=== PATIENT | female | born 1925 | race Caucasian/White ===

== ENCOUNTER → 2016-09-23 | Outpatient (CLI) | payer MEDICARE, OTHER ==
[~2016-09-23] MED LIST: AUGMENTIN875 M1 PO; AVAPRO PO; CEPHALEXIN500 M1 PO; COLACE PO; COZAAR100 MG PO; COZAAR25 MG; CYANOCOBALAM1000 MCG PO; FLEXERIL10 MG PO; HI-CAL500 M1 PO; LORTAB 5/500 TA1 TA1 PO; MEDROL DOSE PAK; MIRALAX17 GM PO; NORVASC PO; ORUDIS75 M1 PO; SENNA PO; TOPROL XL PO; TYLENOL PO
--- NOTE | ~2016-09-23 | US85 ---
[facility] A Service of [facility] RADIOLOGY TEXT RESULTS PATIENT: MICHAELA OSORIO LOCATION: CNIV : [birth year] UNIT #: [id number] AGE: [address]: Ari Galo MD SEX: F ORDER DR: [id number] [facility] [address]. [place], [place] [address] [id number] MR#: [id number] #: [id number] NAME: MICHAELA OSORIO : 1925 SEX: F STUDY DATE/TIME: 09/23/2016 16:35 UNIT: CNIV ROOM: STUDY DESCRIPTION: [facility] St[facility] Attending Physician: Ari Galo M.D. Ordering Physician: Ari Galo M.D. Primary Care Physician: Ari Galo M.D. MEDICAL IMAGING REPORT This report is preliminary unless electronic signature is present EXAM Left lower extremity Doppler venous ultrasound 09/23/2016 HISTORY Left lower extremity swelling for a week. Erythema for 3-4 days. COMPARISON None. TECHNIQUE Venous ultrasound examination of the left lower extremity was performed using grayscale, spectral Doppler and color flow Doppler imaging. FINDINGS The examination is negative. There is no evidence of left lower extremity deep venous thrombus from the groin to the lower calf. Visualized greater saphenous vein is also patent. IMPRESSION Negative examination. No evidence of left lower extremity deep venous thrombosis. Dictated by... Rayne Benitez M.D. THIS IS AN ELECTRONICALLY VERIFIED REPORT Rayne Benitez M.D. at 09/24/2016 2:08 PM [facility]/manuel TD: 09/24/2016 08:08 JOB #: [id number] [facility] A Service [facility] RADIOLOGY TEXT RESULTS PATIENT: MICHAELA OSORIO LOCATION: CNIV : [birth year] UNIT #: [id number] AGE: [address]: Ari Galo MD SEX: F ORDER DR: MEDICAL IMAGING REPORT COPY
== END | disposition home or self-care (01) ==
LOC: CNIV 16:07
DX: M79.89 Other specified soft tissue disorders (principal)
CPT/HCPCS: 93971

== ENCOUNTER 2016-10-04 14:55 | Inpatient (IN) | payer MEDICARE, OTHER ==
--- NOTE | ~2016-10-04 | CT87 ---
[facility] A Service of [facility] RADIOLOGY TEXT RESULTS PATIENT: MICHAELA OSORIO LOCATION: A : [birth year] UNIT #: [id number] AGE: [address]: Jackeline Odonnell MD SEX: F ORDER DR: [id number] [facility] [address] [place], [place] [address] [id number] I MR#: [id number] Acc #: [id number] NAME: MICHAELA OSORIO : 1925 SEX: F STUDY DATE/TIME: 10/06/2016 15:45 UNIT: C2A ROOM: [facility] STUDY DESCRIPTION: CT Lower Ext Anthony W Cont Attending Physician: Jackeline Odonnell M.D. Ordering Physician: Abdoulaye Lovell M.D. Primary Care Physician: Ari Galo M.D. MEDICAL IMAGING REPORT This report is preliminary unless electronic signature is present EXAM CT scan of the lower extremities with contrast. HISTORY Bilateral lower extremity cellulitis with concern for abscess. History of cellulitis over the past 3 weeks, particularly on the left. TECHNIQUE Axial images were obtained through the lower extremities with contrast. 100 mL of Isovue was used. This CT exam was performed with one or more of the following radiation dose reduction techniques: automatic exposure control, adjustment of mA and/or kV according to patient size, and iterative reconstruction. FINDINGS Edematous changes are seen subcutaneously on the left and right sides, but worse on the left. There is no evidence of focal soft tissue abscess. No destructive bone lesions are seen. No venous filling defects are seen to suggest thrombus. Atherosclerotic calcification is noted in the popliteal artery, especially on the left. IMPRESSION Soft tissue swelling with no evidence of abscess. No evidence of active cortical bone destruction. Dictated by... Messi Quinn M.D. THIS IS AN ELECTRONICALLY VERIFIED REPORT Messi Quinn M.D. at 10/08/2016 11:01 AM RLF/gz [facility] A Service of [facility] RADIOLOGY TEXT RESULTS PATIENT: MICHAELA OSORIO LOCATION: [facility] 203-01 : [birth year] UNIT #: [id number] AGE: [address]: Jackeline Odonnell MD SEX: F ORDER DR: TD: 10/07/2016 10:53 JOB #: [id number] MEDICAL IMAGING REPORT Page 1 of 1 COPY
--- NOTE | ~2016-10-04 | US84 ---
[id number] [facility] [address]. [place], [place] [address] [id number] I MR#: [id number] Acc #: [id number] NAME: MICHAELA OSORIO : 1925 SEX: F STUDY DATE/TIME: 10/04/2016 16:42 UNIT: C2A ROOM: 203 STUDY DESCRIPTION: US LE Veins Complete Anthony Stdy Attending Physician: Anneliese Ozuna M.D. Ordering Physician: Anneliese Ozuna M.D. Primary Care Physician: Ari Galo M.D. MEDICAL IMAGING REPORT This report is preliminary unless electronic signature is present EXAM Bilateral lower extremity venous duplex ultrasound 10/04/2016 HISTORY 89-year-old female with bilateral lower extremity pain and swelling for 2 weeks. COMPARISON Left lower extremity venous ultrasound 09/23/2016 FINDINGS Real time hooks-scale, color Doppler, and spectral Doppler analysis of the bilateral lower extremity deep venous systems demonstrates normal venous waveforms with normal compressibility and augmentation throughout. No evidence of bilateral lower extremity deep venous thrombosis. IMPRESSION Negative for bilateral lower extremity DVT. Dictated by... Blair Hopper M.D. THIS IS AN ELECTRONICALLY VERIFIED REPORT Blair Hopper M.D. at 10/05/2016 6:04 AM KAILA/nubia TD: 10/05/2016 05:39 JOB #: [id number] MEDICAL IMAGING REPORT COPY
--- NOTE | ~2016-10-04 | DS ---
Unit #: [id number] #: [id number] Patient: MICHAELA OSORIO [id number] [address] [place], [place] [address] [id number] I MR#: [id number] NAME: MICHAELA OSORIO ROOM: 203 Age: 89 Sex: F Admission Date: 10/04/2016 : 1925 Discharge Date: 10/07/2016 Attending Physician: Jackeline Odonnell M.D. Primary Care Physician: Ari Galo M.D. DISCHARGE SUMMARY ADMITTING DIAGNOSES Cellulitis, hypertension, chronic obstructive pulmonary disease. HISTORY OF PRESENTING ILLNESS The patient is an 89-year-old lady with a past medical history of coronary artery disease, COPD, hypertension, aortic aneurysm, chronic back pain, presented from primary care physician's office with a chief complaint of cellulitis. Apparently, she was treated with clindamycin and she did not respond in the office. HOSPITAL COURSE She was started on antimicrobials including vancomycin and Zosyn. Blood cultures were obtained. Blood cultures were all negative. The cellulitis was taking little bit longer to improve and for further evaluation, we did a CT with contrast which did not show any evidence of any abscess. She is doing clinically better. She feels the cellulitis has improved well. We will discharge her on oral Augmentin. I explained her in detail about the possible side effects of Augmentin including diarrhea and explained her if she is not feeling well, she needs to talk to her primary care. She is doing clinically better and for the blood pressure, she was on 2 of her home medications and it is not getting under control and we added Norvasc. I am requesting her to follow up with her primary care in 1 to 2 weeks. PHYSICAL EXAMINATION On the day of the discharge: VITAL SIGNS: Temperature 98.5, pulse rate 55, respiratory rate 18, blood pressure 167/56. GENERAL: The patient is alert and oriented x3, lying in the bed. No acute distress. HEENT: Normocephalic, atraumatic. No icterus. LISA. Extraocular muscles are intact. NECK: Supple. No JVD. HEART: S1, S2. Regular rate and rhythm. CHEST: Bilateral equal entry. Clear to auscultation. ABDOMEN: Soft, nontender. EXTREMITIES: Mild cellulitis in both the lower extremities. DISCHARGE MEDICATIONS Include Toprol-XL 100 mg daily, losartan 100 mg daily, Norvasc 5 mg daily, Augmentin 875 mg one tab p.o. b.i.d. for 10 days. DISCHARGE INSTRUCTIONS All the discharge instructions were explained in detail to the patient. Unit #: [id number] #: [id number] Patient: MICHAELA OSORIO Total time spent in her care 35 minutes. Dictated by... Gina Teague/lynda TD: 10/08/2016 06:08 JOB #: [id number] DISCHARGE SUMMARY Page 1 of 1 X X DISCHARGE SUMMARY
--- NOTE | ~2016-10-04 | HP ---
Unit #: [id number] #: [id number] Patient: MICHAELA OSORIO [id number] [address] [address] [id number] I MR#: [id number] NAME: MICHAELA OSORIO ROOM: 203 Age: 89 Sex: F Admission Date: 10/04/2016 : 1925 Attending Physician: Anneliese Ozuna M.D. Primary Care Physician: Ari Galo M.D. HISTORY AND PHYSICAL ADDENDUM VITAL SIGNS: Temperature 98, pulse 77, respirations 18, blood pressure 121/65, oxygen saturation 97%. Dictated by Gina Haynes/sera TD: 10/04/2016 20:13 JOB #: [id number] HISTORY AND PHYSICAL X Anneliese Ozuna MD HISTORY AND PHYSICAL
--- NOTE | ~2016-10-04 | EKG ---
PATIENT: MICHAELA OSORIO UNIT #: [id number] Ventricular Rate: 58 BPM Atrial Rate: 58 BPM P-R Interval: 152 ms QRS Duration: 80 ms Q-T Interval: 460 ms QTC Calculation(Bezet): 451 ms P Sophia: 65 degrees Calculated R Sophia: 22 degrees Calculated T Sophia: 39 degrees Diagnosis Line: Sinus bradycardia Diagnosis Line: Otherwise normal ECG Diagnosis Line: When compared with ECG of 23-OCT-2009 08:20, Diagnosis Line: No significant change was found Diagnosis Line: Confirmed by NELSON DAY MD ([id number]) on 10/07/2016 Diagnosis Line: 7:24:17 AM INTERPRETING MD: SHAY VENCES
--- NOTE | ~2016-10-04 | HP ---
Unit #: [id number] #: [id number] Patient: MICHAELA OSORIO [id number] [facility] [address]. [place], [place] [address] [id number] I MR#: [id number] NAME: MICHAELA OSORIO ROOM: 203 Age: 89 Sex: F Admission Date: 10/04/2016 : 1925 Attending Physician: Anneliese Ozuna M.D. Primary Care Physician: Ari Galo M.D. HISTORY AND PHYSICAL CHIEF COMPLAINT Cellulitis. HISTORY OF PRESENT ILLNESS The patient is an 89-year-old female with past medical history of coronary artery disease, COPD, hypertension, aortic aneurysm, chronic back pain, diverticular disease, who was a direct admit from Dr. Galo' office for evaluation of the above. The patient has had a three-week history of cellulitis involving the left leg. The patient states that she has had increasing redness, warmth and swelling. She initially received Keflex which she completed as prescribed. She was then changed to clindamycin. She states that the left leg has gotten slightly better, however, four days prior to admission the right leg started being red and swollen as well. Today, she saw Dr. Galo and was sent to [facility] for admission. The patient denies any fever. She denies ever having a similar problem. No chest pain, no trouble breathing, no vomiting or diarrhea. She has had some urinary frequency. The patient did have a left lower extremity venous Doppler on 09/23/2016 that was negative for DVT. PAST MEDICAL HISTORY 1. Admission to [facility] 11/01 through 11/03/2014 for left upper extremity cellulitis. 2. Coronary artery disease, status post cardiac stent placement. 3. Hypertension. 4. Osteoporosis with history of compression fracture. 5. Abdominal aortic aneurysm. 6. Osteoarthritis. 7. Chronic back pain. 8. Diverticular disease with history of diverticulitis and possible abscess status post perforation. PAST SURGICAL HISTORY 1. Placement of "drain" following a colon rupture. 2. Kyphoplasty. 3. Partial hysterectomy. 4. 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 5. Cardiac catheterization with stent placement. 6. Appendectomy. ALLERGIES 1. Plavix. 2. Valium. Unit #: [id number] #: [id number] Patient: MICHAELA OOSRIO 3. Oxaprozin. 4. Actonel. 5. Sulfa. 6. Ativan. HOME MEDICATIONS Per the discharge summary of October of 2014 include: 1. Toprol XL. 2. Cozaar. 3. Vitamin B12. Home medications will need to be reviewed and verified. SOCIAL HISTORY The patient lives with her . She is a former smoker. She denies alcohol use. FAMILY HISTORY Notable for heart disease and malignancy. The patient states that she has three children that had cancer. REVIEW OF SYSTEMS A complete review of systems is negative except as indicated in the HPI. Per the discharge summary, the patient did qualify for home oxygen. She states that she used it for about a week but has not used it since then. PHYSICAL EXAMINATION VITAL SIGNS: Pending. GENERAL: The patient is a very pleasant female who is awake and alert in no acute distress. HEENT: Head is atraumatic. Mucous membranes are moist. NECK: Supple. Trachea is midline. LUNGS: Clear to auscultation bilaterally with no increased work of breathing. HEART: Regular rate and rhythm. ABDOMEN: Soft, nontender. Bowel sounds present in all four quadrants. EXTREMITIES: Lower extremities show 2+ pitting edema with associated erythema, warmth and tenderness to palpation. Dorsalis pedis pulses are dopplerable. Sensation is intact. NEUROLOGIC: Patient is awake and alert. She is oriented x3. She follows commands. PSYCHIATRIC: Mood and affect are normal. Patient is cooperative. SKIN OF EXAMINED AREAS: Demonstrates the previously described abnormalities. DIAGNOSTIC STUDIES LABORATORY: Pending. IMAGING: Left lower extremity venous Doppler from 09/23/2016 was negative. ASSESSMENT The patient is an 89-year-old female with: 1. Bilateral lower extremity cellulitis that has failed outpatient treatment with Keflex and clindamycin. 2. History of coronary artery disease, status post stent placement. 3. Chronic obstructive pulmonary disease. 4. Hypertension. 5. Aortic aneurysm. Unit #: [id number] #: [id number] Patient: MICHAELA OSORIO 6. Chronic back pain. 7. Diverticular disease. 8. Former smoker. PLAN 1. Admit to med-surg. 2. Healthy-heart diet. 3. Check labs including lactic acid and CPK. 4. Blood cultures x2. 5. Vancomycin IV and Zosyn IV pending further workup. 6. P.r.n. Tylenol. 7. P.r.n. Zofran. 8. Check urinalysis. 9. Check bilateral lower extremity venous Dopplers. 10. Repeat labs in the morning. 11. Additional workup and consultants based on above. Dictated by Gina Haynes/emelina TD: 10/04/2016 17:22 JOB #: [id number] HISTORY AND PHYSICAL X Anneliese Ozuna MD HISTORY AND PHYSICAL
[~2016-10-04 14:55] MED LIST changes: -AUGMENTIN875 M1 PO; -NORVASC PO
[2016-10-04 16:10] LABS: HEMATOCRIT 34.8 % (35.0-45.0); HEMOGLOBIN 11.5 gm/dL (12.0-16.0); MEAN CELL VOLUME 96.2 FL (83-96); MEAN CORPUSCULAR HEMOGLOBIN 31.7 PG (28-34); MEAN CORPUSCULAR HGB CONC 32.9 g/dL (30-36); MEAN PLATELET VOLUME 9.1 FL (6.5-11.5); RED BLOOD COUNT 3.62 X10e (3.90-5.30); RED CELL DISTRIBUTION WIDTH 16.3 % (11.0-15.5); WHITE BLOOD COUNT 8.5 X10e3 (4.0-10.5)
[2016-10-04 16:27] LABS: PROTHROMBIN TIME (PATIENT) 10.3 SECONDS (9.6-11.5)
[2016-10-04 16:38] LABS: BILIRUBIN,TOTAL 1.2 mg/dL (0.2-2.0); CALCIUM SERUM 8.7 mg/dL (8.4-10.2); GLOM FILT RATE Estimated 55.6 mL/min (>60); POTASSIUM 4.6 mmol/L (3.5-5.1); PROTEIN TOTAL SERUM 7.1 g/dL (6.0-8.3)
[2016-10-04 17:51] LABS: URINE APPEARANCE CLEAR; URINE BILIRUBIN NEG (NEG); URINE BLOOD NEG (NEG); URINE COLOR YELLOW; URINE GLUCOSE NEG (NEG); URINE KETONE NEG (NEG); URINE LEUKOCYTE ESTERASE TRACE (NEG); URINE NITRATE NEG (NEG); URINE PROTEIN NEG (NEG); URINE SPECIFIC GRAVITY 1.007 (1.003-1.035); URINE UROBILINOGEN 0.2 MG/DL (NEG)
[2016-10-04 17:53] LABS: URBCS1 AUWI 0-2 /[HPF] (0-2); URINE BACTERIA AUWI NEG (NEGATIVE); URINE SQUAMOUS EPITHELIAL CELL NONE SEEN /[HPF]; UWBCS1 AUWI 0-2 (0-5)
[2016-10-05 06:13] LABS: HEMATOCRIT 32.3 % (35.0-45.0); HEMOGLOBIN 10.7 gm/dL (12.0-16.0); MEAN CORPUSCULAR HEMOGLOBIN 31.9 PG (28-34); MEAN CORPUSCULAR HGB CONC 33.2 g/dL (30-36); MEAN PLATELET VOLUME 8.6 FL (6.5-11.5); RED BLOOD COUNT 3.36 X10e (3.90-5.30); RED CELL DISTRIBUTION WIDTH 16.3 % (11.0-15.5); WHITE BLOOD COUNT 8.1 X10e3 (4.0-10.5)
[2016-10-05 06:14] LABS: PROTHROMBIN TIME (PATIENT) 10.8 SECONDS (9.6-11.5)
[2016-10-05 06:51] LABS: ALBUMIN SERUM 3.5 g/dL (3.5-5.0); BILIRUBIN,TOTAL 1.5 mg/dL (0.2-2.0); BUN/CREATININE RATIO 11.81; CALCIUM SERUM 8.8 mg/dL (8.4-10.2); CREATININE SERUM 1.1 mg/dL (0.6-1.4); GLOM FILT RATE Estimated 49.8 mL/min (>60); POTASSIUM 4.1 mmol/L (3.5-5.1); PROTEIN TOTAL SERUM 6.2 g/dL (6.0-8.3)
[2016-10-06 07:44] LABS: HEMATOCRIT 30.3 % (35.0-45.0); HEMOGLOBIN 10.3 gm/dL (12.0-16.0); MEAN CELL VOLUME 94.4 FL (83-96); MEAN CORPUSCULAR HGB CONC 33.9 g/dL (30-36); MEAN PLATELET VOLUME 8.2 FL (6.5-11.5); RED BLOOD COUNT 3.21 X10e (3.90-5.30); RED CELL DISTRIBUTION WIDTH 16.3 % (11.0-15.5)
[2016-10-06 08:19] LABS: BUN/CREATININE RATIO 9.09; CALCIUM SERUM 8.4 mg/dL (8.4-10.2); CREATININE SERUM 1.1 mg/dL (0.6-1.4); GLOM FILT RATE Estimated 49.8 mL/min (>60); POTASSIUM 3.9 mmol/L (3.5-5.1)
[2016-10-07 06:08] LABS: HEMATOCRIT 30.2 % (35.0-45.0); HEMOGLOBIN 10.2 gm/dL (12.0-16.0); MEAN CELL VOLUME 94.5 FL (83-96); MEAN CORPUSCULAR HGB CONC 33.9 g/dL (30-36); MEAN PLATELET VOLUME 8.3 FL (6.5-11.5); RED BLOOD COUNT 3.2 X10e (3.90-5.30); RED CELL DISTRIBUTION WIDTH 16.5 % (11.0-15.5); WHITE BLOOD COUNT 7.5 X10e3 (4.0-10.5)
[2016-10-07 06:57] LABS: BLOOD UREA NITROGEN 8 mg/dL (9-23); BUN/CREATININE RATIO 8.88; CALCIUM SERUM 8.3 mg/dL (8.4-10.2); CARBON DIOXIDE 22 mmol/L (22-31); CHLORIDE 103 mmol/L (100-111); CREATININE SERUM 0.9 mg/dL (0.6-1.4); GLOM FILT RATE Estimated ABOVE60 mL/min (>60); GLUCOSE FASTING 87 mg/dL (70-110); POTASSIUM 3.8 mmol/L (3.5-5.1); SODIUM 135 mmol/L (135-145)
[2016-10-07] MEDS ORDERED: NORVASC PO (10:42)
[2016-10-07] MEDS ORDERED: AUGMENTIN875 M1 PO (10:43)
== END 2016-10-07 11:50 | disposition home or self-care (01) | DRG 603 ==
LOC: C2A 14:55
PROVIDERS: Family Medicine; Internal Medicine
DX: L03.116 Cellulitis of left lower limb (principal); J44.9 Chronic obstructive pulmonary disease, unspecified; L03.115 Cellulitis of right lower limb; Z88.2 Allergy status to sulfonamides; Z88.8 Allergy status to other drugs, medicaments and biological substances; I10 Essential (primary) hypertension; I25.10 Atherosclerotic heart disease of native coronary artery without angina pectoris; M54.9 Dorsalgia, unspecified; I71.4 Abdominal aortic aneurysm, without rupture; Z87.891 Personal history of nicotine dependence; L02.416 Cutaneous abscess of left lower limb; Z90.711 Acquired absence of uterus with remaining cervical stump; Z90.49 Acquired absence of other specified parts of digestive tract; Z95.5 Presence of coronary angioplasty implant and graft; Z89.202 Acquired absence of left upper limb, unspecified level
CPT/HCPCS: 73701; 80048; 80053; 80202; 81003; 82550; 83605; 85027; 85610; 87040; 87086; 93005; 93970; 94640; 94760; J2543; J3370; Q9967

== ENCOUNTER 2017-01-29 23:39 | Emergency (ER) | payer MEDICARE, OTHER ==
--- NOTE | ~2017-01-29 | EKG ---
PATIENT: MICHAELA OSORIO UNIT #: [id number] Ventricular Rate: 61 BPM Atrial Rate: 61 BPM P-R Interval: 150 ms QRS Duration: 80 ms Q-T Interval: 436 ms QTC Calculation(Bezet): 438 ms P Mcgregor: 77 degrees Calculated R Mcgregor: 12 degrees Calculated T Mcgregor: 44 degrees Diagnosis Line: Sinus rhythm with occasional Premature ventricular Diagnosis Line: complexes and Premature atrial complexes Diagnosis Line: Septal infarct , age undetermined Diagnosis Line: Abnormal ECG Diagnosis Line: When compared with ECG of 04-OCT-2016 18:14, Diagnosis Line: Premature ventricular complexes are now Present Diagnosis Line: Premature atrial complexes are now Present Diagnosis Line: Septal infarct is now Present Diagnosis Line: Confirmed by CHRISS CUADRA MD ([id number]) on Diagnosis Line: 01/30/2017 10:42:17 AM INTERPRETING MD: KHALIF VENCES
--- NOTE | ~2017-01-29 | CR72 ---
[facility] A Service [facility] RADIOLOGY TEXT RESULTS PATIENT: MICHAELA OSORIO LOCATION: [facility] : [birth year] UNIT #: [id number] AGE: [address]: Sachin Carvalho MD SEX: F ORDER DR: [id number] [place] [id number] [facility]. [place], [place] [address] [id number] MR#: [id number] #: [id number] NAME: MICHAELA OSORIO : 1925 SEX: F STUDY DATE/TIME: 01/30/2017 0:18 UNIT: [facility] ROOM: STUDY DESCRIPTION: CR Chest Single View Portable Attending Physician: Sachin Carvalho M.D. Ordering Physician: Ed Doctor [id number] Primary Care Physician: Ari Galo M.D. MEDICAL IMAGING REPORT This report is preliminary unless electronic signature is present EXAM Portable chest INDICATION Shortness of air and wheezing starting today. COMPARISON 02/10/2015 FINDINGS A portable view of the chest was obtained. The heart size is upper limits of normal. There is mild interstitial prominence throughout the lungs with some minimal right lower lobe infiltrate. Cardiac monitors obscure small portions of the chest. There has been prior vertebroplasty in the lower thoracic spine. IMPRESSION There is mild diffuse interstitial prominence with some patchy infiltrate in the right infrahilar region suggesting pneumonia. Dictated by... Myron Webber M.D. THIS IS AN ELECTRONICALLY VERIFIED REPORT Myron Webber M.D. at 01/30/2017 9:51 PM SHO/tim TD: 01/30/2017 02:19 JOB #: [id number] [facility] A Service [facility] RADIOLOGY TEXT RESULTS PATIENT: MICHAELA OSORIO LOCATION: [facility] : [birth year] UNIT #: [id number] AGE: [address]: Sachin Carvalho MD SEX: F ORDER DR: MEDICAL IMAGING REPORT Page 1 of 1 COPY
[~2017-01-29 23:39] MED LIST changes: +AUGMENTIN875 M1 PO; +NORVASC PO
[2017-01-30 01:24] LABS: POC - CKMB <1.0 ng/mL (0.0-7.9); POC - TROPONIN <0.05 ng/mL (<=0.05)
[2017-01-30 01:59] LABS: BASOPHIL# 0.1 X10e3 (0-0.3); BASOPHIL% 0.6 % (0-2.5); EOSINOPHIL# 0.1 X10e3 (0-0.7); EOSINOPHIL% 1.3 % (0.0-7.0); HEMOGLOBIN 10.3 gm/dL (12.0-16.0); LYMPHOCYTE# 1.3 X10e3 (1.0-3.5); LYMPHOCYTE% 14.6 % (17.0-45.0); MEAN CELL VOLUME 97.4 FL (83-96); MEAN CORPUSCULAR HEMOGLOBIN 32.4 PG (28-34); MEAN CORPUSCULAR HGB CONC 33.3 g/dL (30-36); MEAN PLATELET VOLUME 8.4 FL (6.5-11.5); MONOCYTE# 0.9 X10e3 (0-1.0); MONOCYTE% 10.1 % (3.0-12.0); NEUTROPHIL# 6.7 X10e3 (1.5-7.1); NEUTROPHIL% 73.4 % (40-75); PLATELET COUNT 184 X10e3 (140-420); RED BLOOD COUNT 3.19 X10e (3.90-5.30); RED CELL DISTRIBUTION WIDTH 16.1 % (11.0-15.5); WHITE BLOOD COUNT 9.1 X10e3 (4.0-10.5)
[2017-01-30 02:04] LABS: DIFF IND NO
[2017-01-30 02:22] LABS: ALBUMIN SERUM 3.7 g/dL (3.5-5.0); BILIRUBIN, DIRECT 0.2 mg/dL (0.0-0.2); BILIRUBIN,INDIRECT 0.6 mg/dL (0.0-0.9); BILIRUBIN,TOTAL 0.8 mg/dL (0.2-2.0); BUN/CREATININE RATIO 15.83; CALCIUM SERUM 8.4 mg/dL (8.4-10.2); CREATININE SERUM 1.2 mg/dL (0.6-1.4); POTASSIUM 4.2 mmol/L (3.5-5.1); PROTEIN TOTAL SERUM 6.6 g/dL (6.0-8.3)
== END 2017-01-30 03:36 | disposition home or self-care (01) ==
LOC: CED 23:39
PROVIDERS: Emergency Medicine
DX: J18.1 Lobar pneumonia, unspecified organism (principal); R60.0 Localized edema; I10 Essential (primary) hypertension; Z90.710 Acquired absence of both cervix and uterus; Z88.8 Allergy status to other drugs, medicaments and biological substances; Z79.899 Other long term (current) drug therapy
CPT/HCPCS: 36415; 71010; 80048; 80076; 82553; 83880; 84484; 85025; 93005; 96365; 99285; J0696